=== PATIENT | female | born 1985 | race Caucasian/White ===

== ENCOUNTER 2021-09-18 10:44 | Outpatient (REF) | payer BC, SELFPAY ==
[2021-09-18 13:54] LABS: Hematocrit 36.2 % (37.0-47.0); Hemoglobin 12.5 g/dl (12.0-16.0); Mean Corpuscular HGB Conc 34.5 g/dl (31.0-35.0); Mean Corpuscular Hemoglobin 30.6 pg (27.0-33.0); Mean Corpuscular Volume 88.5 fL (80.0-98.0); Mean Platelet Volume 11.2 fL (9.4-12.3); Platelet Count 323 X10*3/uL (160-400); Red Blood Count 4.09 X10*6/uL (4.20-5.50); Red Cell Distribution Width 11.8 % (11.0-16.0); White Blood Count 5.8 X10*3/uL (4.8-10.8)
[2021-09-18 14:07] LABS: Alanine Aminotransferase 13 U/L (0-31); Albumin Level 4.3 g/dL (3.5-5.0); Alkaline Phosphatase 65 U/L (39-117); Anion Gap 10 (12-20); Aspartate Amino Transferase 20 U/L (5-31); Bilirubin Total 0.7 mg/dL (0.0-1.0); Blood Urea Nitrogen 12 mg/dL (9-16); Calcium 8.9 mg/dL (8.4-10.2); Carbon Dioxide 26 mmol/L (22-29); Chloride 106 mmol/L (96-108); Cholesterol 177 mg/dL; Estimated Glomerular Filt Rate > 60; Glucose Fasting 89 mg/dL (60-99); HDL Cholesterol 73 mg/dL; LDL Cholesterol Calculated 94 mg/dl; Sodium 138 mmol/L (135-145); Triglycerides 54 mg/dL
[2021-09-18 14:29] LABS: TSH reflex Free T4 1.24 uIU/mL (0.32-4.0)
== END 2021-09-18 10:45 | disposition home or self-care (01) ==
LOC: HO.WFDLDS 10:44
PROVIDERS: Visit Provider Hospitalist
DX: Z00.00 Encounter for general adult medical examination without abnormal findings (principal); Z13.220 Encounter for screening for lipoid disorders; Z13.29 Encounter for screening for other suspected endocrine disorder
CPT/HCPCS: 36415; 80053; 80061; 84443; 85027

== ENCOUNTER 2022-03-26 13:56 | Outpatient (REF) | payer BC, SELFPAY ==
[2022-03-27 13:51] LABS: Influenza A PCR NEGATIVE (Negative); Influenza B PCR NEGATIVE (Negative); Resp Syncy Virus RNA Qual PCR NEGATIVE (Negative); SARS COV2 PCR INHOUSE NEGATIVE (Negative)
== END 2022-03-26 13:57 | disposition home or self-care (01) ==
LOC: HO.LNP 13:56
PROVIDERS: Visit Provider Nurse Practitioner Family
DX: J06.9 Acute upper respiratory infection, unspecified (principal); Z20.822 Contact with and (suspected) exposure to COVID-19
CPT/HCPCS: 0241U

== ENCOUNTER 2023-04-11 15:32 | Outpatient (AMB) | payer BC, SELFPAY ==
[2023-04-11 15:38] VITALS: BP 138/70; PULSE 104; RESP 13; TEMP 36.6; O2SAT 99
--- NOTE | 2023-04-11 15:38 | MHC.PC.OV ---
Vital Signs 04/11/23 15:38 Height 4 ft 11 in BMI Reason not done Patient refused/unable BP 138/70 Blood Pressure Location Rt brachial Position Sitting Respiration 13 Pulse 104 H Pulse Source Pulse Oximeter Temp 97.9 F Temp Source Temporal Artery Scan Pulse Oximetry (%) 99 Oxygen Delivery Method Room Air Intake Visit Reasons: ortho referral, left ankle Intake Note: Patient would like referral to be back dated from 03/24/23 with 12 visits just incase she needs to be seen further. Patient would like to be [facility] in [place]. 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 Accompanied by: Self / Same As Patient Allergies Penicillins Allergy (Unknown, Verified 04/11/23 15:51) Hives Medication List - Last Reconciled 04/11/23 by Deanne Ornelas CNP sertraline 50 mg PO DAILY verapamil ER 360 mg (2 x 180 mg) PO DAILY 30 days Tobacco use date assessed: 04/11/23 Dental Screening Dental Screen Date: 04/11/23 Did you have a dental visit in the last 12 months?: Yes Did you have a dental problem in the last 6 months where you did not have access to dental care?: No Was dental information given to patient?: Patient has dentist HPI HPI Comments History of Present Illness Details 37-year-old female presents with complaints of pain to her left ankle. She notes that she inadvertently rolled and twisted the ankle in a pot hole 3 weeks ago She was evaluated at an urgent care in [facility], x-ray revealed no acute findings, she was informed it is likely a sprain ankle, given an ortho which she has been wearing daily. She has been taking Ibuprofen. She was advised to f/u with [facility] ortho; she has an appointment with them next Friday [facility] Medical History Sprained ankle Surgical History History of 3 sections S/P LASIK surgery of both eyes History of wisdom tooth extraction Family History Mother No problems noted. Father No problems noted. Social History Housing: House Patient Tobacco Use Status: Never used Tobacco e-Cigarette/Vaping Use: Never Used Second Hand Smoke Exposure: No service: No Current occupational status: employed Current occupation: Teacher Current occupational exposures/hazards: No Cognitive needs: No Hearing needs: No Vision needs: No Questionnaire Thrive Questionnaire Date Thrive assessed: 05/29/21 CONSTANZA-7 AMB Questionnaire CONSTANZA-7 Date CONSTANZA - 7 assessed: 05/29/21 Source: Developed by Drs. Bryon Gould, Carline Cisse, Lino Andrade and colleagues, with an educational cyril from [employer]. Review of Systems Const Details: Const Denies chills, Denies fatigue, Denies fever(s), Denies headache(s) and Denies weakness ENT Denies dizziness and Denies headache(s) Card Denies chest pain, Denies lightheadedness, Denies dyspnea and Denies other (Palpitations) Resp Denies cough, Denies dyspnea, Denies wheezing and Denies other ( shortness of breath) GI Denies abdominal pain, Denies melena, Denies hematochezia, Denies change in bowel habits, Denies dyspepsia and Denies nausea Denies hematuria and Denies dysuria Musc Reports as per HPI Skin/Breast Denies rash, Denies unusual bruising and Denies wounds Neuro Denies abnormal gait, Denies dizziness, Denies headache(s), Denies memory loss, Denies numbness, Denies Sensory deficit (Neuro), Denies tingling and Denies weakness Psych Denies anxiety, Denies depression, Denies memory loss Endo Denies cold intolerance, Denies fatigue, Denies heat intolerance, Denies polydipsia and Denies polyuria Aller/Immun Denies wheezing Physical exam (Primary Care) Vital Signs: Last Vital Signs Temp 97.9 F 04/11/23 15:38 Pulse 104 H 04/11/23 15:38 Resp 13 04/11/23 15:38 BP 138/70 04/11/23 15:38 Pulse Ox 99 04/11/23 15:38 Oxygen Delivery Method Room Air 04/11/23 15:38 Tobacco/Smoking Status: Tobacco use Status Tobacco use date assessed 04/11/23 04/11/23 15:47 Patient Tobacco Use Status Never used Tobacco 04/11/23 15:47 e-Cigarette/Vaping Use Never Used 04/11/23 15:47 Thrive Assessment: Date of Thrive Assessment Date Thrive assessed 05/29/21 04/11/23 15:47 Const Other: General: no acute distress and well developed Nutritional Appearance: well nourished Orientation/consciousness: patient oriented x3 [facility] Head: Yes normocephalic and Yes atraumatic Eyes General: appearance normal, both eyes and all related structures Pupils: Equal, round and reactive pupils present EOM: EOMs intact bilaterally Resp Effort & Inspection: normal respiratory effort Auscultation: clear to auscultation bilaterally Cardio Rate: regular rate Rhythm: regular rhythm Heart sounds: S1 normal heart sound present, S2 normal heart sound present, no gallops, no murmurs and no rubs GI Palpation (GI): No Abdominal aortic bruit present, Soft to palpation, nontender, No hepatosplenomegaly present and No Rebound tenderness present Auscultation: normal bowel sounds General: Yes no CVA tenderness Back/Spine/Pelvis Back: no CVA tenderness Cervical Spine: cervical ROM normal and No Cervical spine tenderness Thoracic/Lumbar Spine: thoraco-lumbar ROM normal, No pain with thoraco-lumbar ROM, No thoracic spinal tenderness and No lumbar spinal tenderness Extrem General: Yes normal to inspection, No calf tenderness Left ankle with moderate nonpitting edema. No erythema. Positive DP/PT pulses. Steady gait noted Skin General: warm and dry. Normal skin color. Normal skin turgor Neuro General: patient oriented x3, gait normal and no focal neuro deficit Cranial nerves: Yes Equal, round and reactive pupils present Cognition (Neuro): normal cognition Gait exam (Neuro): Normal gait present Sensory Exam: No Sensory deficit (Neuro) Psych Appearance: grossly normal Affect: normal affect Attitude: cooperative Thought process: Normal thought process present Assessment and Plan Assessment & Plan (1) Left ankle pain: Code(s): M25.572 - Pain in left ankle and joints of left foot Plan: Left ankle pain for 3 weeks Left ankle with moderate nonpitting edema. No erythema. Positive DP/PT pulses. Steady gait noted Continue current treatment regimen Elevate the extremity to reduce swelling Referred to [facility] Advised to schedule a transfer of care appointment with a new PCP Follow-up with worsening or new symptoms Verbalized understanding and agreed with treatment plan Orders: Referrals Orthopedics Referral M25.572 - Pain in left ankle and joints of left foot Coding Level of Care Code Est Pt Level 3 (60110) Diagnoses Left ankle pain M25.572
== END 2023-04-11 16:06 | disposition home or self-care (01) ==
PROVIDERS: PCP Nurse Practitioner Family; Visit Provider Nurse Practitioner Family
DX: M25.572 Pain in left ankle and joints of left foot (principal)
CPT/HCPCS: 99213